=== PATIENT | female | born 1980 | race African-American/Black ===

== ENCOUNTER 2024-11-20 08:25 | Outpatient (AMB) | payer OTHER, SELFPAY ==
--- OUTSIDE RECORDS SUMMARY | 2024-11-20 08:34 | XMS_ITS | Clinical Summary ---
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 MAY REPEAT DOSE ONCE AFTER 2 HOURS, IF NEEDED. 9 tablet 7 06/05/20 24 Active topiramate (TOPAMAX) 25 mg tablet Take 1 tablet (25 mg total) by mouth 2 (two) times a day. 60 each 5 08/10/19 25 025 Active fluticasone propionate (FLONASE) 50 mcg/actuation nasal spray Shake gently. Before first use, prime pump. After use, clean tip and replace cap.2 Sprays by Each Nare route daily. 48 g 2 11/12/19 25 Active loratadine (CLARITIN) 10 mg tablet Take 1 tablet (10 mg total) by mouth 1 (one) time each day. 90 tablet 2 11/12/19 25 Active fluticasone propionate (FLONASE) 50 mcg/actuation nasal spray 2 Sprays by Each Nare route daily. 10/24/19 23 025 Discontin ued(Reord er) loratadine (CLARITIN) 10 mg tablet Take 1 tablet (10 mg total) by mouth 1 (one) time each day. 10/24/19 23 025 Discontin ued(Reord er) propranoloL (INDERAL) 20 mg tablet Take 1 tablet (20 mg total) by mouth See administration instructions. Take two tablets (40mg total) by mouth for three days then take one tablet for three days and stop 9 tablet 08/10/19 25 025 Discontin ued(Presc riber Discontin ued) Active Problems Problem Noted Date Diagnosed Date Migraine without aura and wi th status migrainosus, not intractable 09/13/2017 Chronic pain of right knee 06/10/2017 Hidradenitis 06/10/2017 Encounters Date Type Department Care Team Description 11/10/2024 Telephone Adult Medicine [facility] [address] [place] [address] Deya Lew MA Medication (Pharmacy [facility] ) 11/09/2024 3:45 PM EDT Office Visit Adult Medicine [facility] [address] [place] [address] Ronald Short PA Migraine without aura and with status migrainosus, not intractable (Primary Dx); Seasonal allergies from Last 3 Months Immunizations Name Administration Dates Next Due Influenza Quadravalent, MDCK , 0.5ml, preservative free (Flucelvax) 6mo and older 05/23/2020,08/26/2019 Influenza Quadravalent, MDCK , 0.5ml, with preservative (Flucelvax) 6mo and older 05/17/2017 Influenza trivalent, 0.5mL, preservative free (Fluarix; FluLaval; Fluzone) ages 6mo and older (Afluria) 3 years and older 06/07/2015 Influenza trivalent, MDCK, 0 .5mL, preservative free (Flucelvax) 6mo and older 07/10/2024 PPD Test 05/23/2015 LifeScribe SARS-CoV-2 COVID-19, mRNA, LNP-S, preservative free 04/28/2021 Tdap Tetanus diptheria acell ular pertussis (Boostrix; Adacel) 7yo and older 02/07/2018 Surgical History Surgery Date Site/Laterality Comments OTHER SURGICAL HISTORY PROCEDURE: DENIES PREVIOUS SURGERY Medical History Medical History Date Comments Migraine without aura and wi th status migrainosus, not intractable 09/13/2017 DX:Migraine without aura and with status migrainosus, not intractable Family History Medical History Relation Name Comments Other: etoh Father Glaucoma Mother Hypertension Mother Migraines Mother Breast cancer Neg Hx Relation Name Status Comments Brother 1 Alive Brother 2 Alive Brother 3 Alive Brother 4 Alive Father (Age 46) Maternal Grandfather Maternal Grandmother Mother Alive Paternal Grandfather Paternal Grandmother Social History Tobacco Use Types Packs/Day Years Used Date Smoking Tobacco: Never Smokeless Tobacco: Never Alcohol Use Standard Drinks/Week Comments No 0 (1 standard drink = 0.6 oz pur e alcohol) Housing Instability Answer Date Recorde d Are you worried that in the next 2 months you may not have stable housing? No 07/06/2024 Food Access & Nutrition Answer Date Rec orded Do you have access to a vari ety of food including fruits and vegetables? Yes 07/06/2024 Financial Risk Answer Date Recorded How hard is it for you to pa y for the very basics like food, housing, medical care, and air conditioning / heating? Patient declined 07/06/2024 Food Risk Answer Date Recorded Within the past 12 months we worried whether our food would run out before we got money to buy more. Never true 07/06/2024 Within the past 12 months th e food we bought just didn't last and we didn't have money to get more. Never true 07/06/2024 Living Situation Answer Date Recorded What is your living situation? 0 07/06/2024 Comments Unknown Sex and Gender Information Value Date Recorded Sex Assigned at Female 06/22/2024 10:29 AM EST Legal Sex Female 8:55 PM EST Gender Identity Female 06/22/2024 10:29 AM EST Sexual Orientation Straight 08/03/2024 10 :17 PM EST Obstetrics History Para Term AB IAB SAB Ectopic Multiple Livin g Live Births 1 Date Outcome GA Total Labor Labor/2nd/3rd Weight Sex Type Anes PTL Lindsay A1 A5 Name Clin Term Last Filed Vital Signs Vital Sign Reading Time Taken Comments Blood Pressure 106/67 11/09/2024 3:26 PM EDT Pulse 73 11/09/2024 3:26 PM EDT Temperature 36.9 ??C (98.4 ??F) 11/09/2024 3:26 PM ED T Respiratory Rate - - Oxygen Saturation - - Inhaled Oxygen Concentration - - Weight 75.3 kg (166 lb) 11/09/2024 3:26 PM EDT Height 162.6 cm (5' 4 ) 11/09/2024 3:26 PM EDT Body Mass Index 28.49 11/09/2024 3:26 PM EDT Plan of Treatment Health Maintenance Due Date Last Done Comments Hepatitis B Vaccines (1 of 3 - 19+ 3-dose series) 11/12/1999 HIV Screening 06/09/2022 Hepatitis C Screening 06/09/2022 COVID-19 Vaccine ( season) 2024 04/28/2021, 09/01/2020, 08/11/2020 Cervical Cancer Screening: HPV 02/25/2025 02/26/2020 Depression Screening 07/06/2025 07/06/2024 Social Influencers of Health Screening 07/06/2025 07/06/2024 Breast Cancer Screening 06/23/2026 06/23/20 24, 01/29/2023, 11/24/2021 DTaP,Tdap,and Td Vaccines (2 - Td or Tdap) 02/08/2028 02/07/2018 Influenza Vaccine Completed 07/10/2024, , 08/26/2019, Additional history exists HIB Vaccines Aged Out No longer eligi ble based on patient's age to complete this topic HPV Vaccines Aged Out No longer eligi ble based on patient's age to complete this topic Hepatitis A Vaccines Aged Out No long er eligible based on patient's age to complete this topic IPV Vaccines Aged Out No longer eligi ble based on patient's age to complete this topic MMR Vaccines Aged Out No longer eligi ble based on patient's age to complete this topic Meningococcal ACWY Vaccine Aged Out N o longer eligible based on patient's age to complete this topic Meningococcal B Vaccine Aged Out No l onger eligible based on patient's age to complete this topic Pneumococcal Vaccine: Pediatrics (0 to 5 Years) and At-Risk Patients (6 to 64 Years) Aged Out No longer eligible based on patient's age to complete this topic RSV Immunization Patients Under 20 months Aged Out No longer eligible based on patient's age to complete this topic Varicella Vaccines Aged Out No longer eligible based on patient's age to complete this topic Procedures Procedure Name Priority Date/Time Associated Diagnosis Comments MG MAMMO DIGITAL SCREENING W LIDIA BILAT Routine 06/23/2024 10:29 AM EST Encounter for screening mammogram for breast cancer HM HPV Routine 02/26/2020 from Last 3 Months or Most Recently Relevant to Health Maintenance Results * MG Mammo Digital Screening w Lidia bilat (06/23/2024 10:29 AM EST) Anatomical Region Laterality Modality Breast Bilateral Mammography 06/23/2024 5:11 PM EST Impressions 06/23/2024 5:14 PM EST 1. No mammographic evidence of malignancy 2. Scattered fibroglandular tissue BI-RADS CATEGORY: 2 - BENIGN RECOMMENDATION: Screening bilateral mammogram is recommended in 1 year. Mammo Location: [facility], [address] [place] [address], [id number], . -------- FINAL REPORT -------- Dictated By: Kelsey Lopez Dictated Date: 06/23/2024 17:11 ET Assigned Physician: Kelsey Lopez Reviewed and Electronically Signed By: Kelsey Lopez Signed Date: 06/23/2024 17:14 ET Workstation ID: [id number] Transcribed By: Self Edit Transcribed Date: 06/23/2024 17:11 ET Narrative 06/23/2024 5:14 PM EST A BILATERAL DIGITAL 3D SCREENING MAMMOGRAPHY HISTORY: Routine screening. ??No family history of breast cancer. COMPARISON: Multiple priors dating back to 11/24/2021 Technique: Bilateral full field digital mammography (3D) was performed using standard CC and MLO projections CAD ??was used to evaluate this mammogram. FINDINGS: Right: No suspicious masses, groups of microcalcification or areas of architectural distortion identified. Stable typically benign parenchymal asymmetries. Left: No suspicious masses, groups of microcalcification or areas of architectural distortion identified. Stable typically benign parenchymal asymmetries. BREAST DENSITY: B - There are scattered areas of fibroglandular density. Procedure Note Kelsey Lopez MD - 06/23/2024 A BILATERAL DIGITAL 3D SCREENING MAMMOGRAPHY HISTORY: Routine screening. No family history of breast cancer. COMPARISON: Multiple priors dating back to 11/24/2021 Technique: Bilateral full field digital mammography (3D) was performedusing standard CC and MLO projections CAD was used to evaluate this mammogram. FINDINGS: Right: No suspicious masses, groups of microcalcification or areas ofarchitectural distortion identified. Stable typically benign parenchymalasymmetries. Left: No suspicious masses, groups of microcalcification or areas ofarchitectural distortion identified. Stable typically benign parenchymalasymmetries. BREAST DENSITY: B - There are scattered areas of fibroglandular density. IMPRESSION: 1. No mammographic evidence of malignancy 2. Scattered fibroglandular tissue BI-RADS CATEGORY: 2 - BENIGN RECOMMENDATION: Screening bilateral mammogram is recommended in 1 year. Mammo Location: [facility], [address] [place] [address], [id number], . -------- FINAL REPORT -------- Dictated By: Kelsey Lopez Dictated Date: 06/23/2024 17:11 ET Assigned Physician: Kelsey Lopez Reviewed and Electronically Signed By: Kelsey Lopez Signed Date: 06/23/2024 17:14 ET Workstation ID: [id number] Transcribed By: Self Edit Transcribed Date: 06/23/2024 17:11 ET Deya Burton MD IMG BI PROCEDURES Final Result * Cervical Cancer Screening: HPV (02/26/2020) Cervical Cancer Screening: HPV no interpretation , abstracted Historical Provider HEALTH MAINTENANCE Final Result from Last 3 Months or Most Recently Relevant to Health Maintenance Insurance [employer] Care Teams Professor Of Criminal Justice Relationship Specialty Start Date End Date Deya Burton MD [address] [place] [id number] PCP - General Internal Medicine 04/19/14
[2024-11-20 08:38] VITALS: BP 110/82; PULSE 78; O2SAT 99
--- NOTE | 2024-11-20 08:38 | MHC.OFFVIS ---
Vital Signs 11/20/24 08:38 Weight 170 lb BP 110/82 Blood Pressure Location Rt brachial Position Sitting Pulse 78 Pulse Source Pulse Oximeter Pulse Oximetry (%) 99 Oxygen Delivery Method Room Air Intake Visit Reasons: Headache Fiction Writer Required: No Accompanied by: Self / Same As Patient Allergies No Known Allergies Allergy (Verified 11/20/24 08:38) Medication List - Last Reconciled 11/20/24 by ROSA Leyva fluticasone propionate 50 mcg/actuation (Children's Flonase Allergy Relief) 1 spray intranasal DAILY levonorgestrel (Mirena) intrauterine loratadine (Allergy Relief (loratadine)) 10 mg PO DAILY sumatriptan succinate 50 - 100 mg orally at onset of headache, may repeat in 2 hrs PRN; max 2 tabs per day or 4 tabs/week (may take with Ibuprofen) 30 days topiramate 50 mg PO BID 30 days HPI Comments Details: 44-yr-old female presents for follow-up of migraine. Patient was last seen in May of 2022 by myself. Pt denies any interval medical history changes. 05/07/2022 brain MRI with and without contrast, at [facility], showed only mild nonspecific foci of T2/FLAIR hyperintensity within the cerebral white matter, but otherwise no explanations to account for patient's history of headache. Pt reports she continues to have her typical headache. Last year was better, but this year her migraines have increased again. The headache starts 5-6 days prior to her menstrual cycle, and lasts for the entire week of her menstrual cycle. She states her menstrual cycle is regular. She remove her Mirena last year, thinking this was contributing to her migraine attacks. She also has milder headaches in between her menstrual migraine. She is taking Sumatriptan, which is helpful for the more bothersome migraine, but sometimes takes a bit longer to kick in. She states after last visit she did increase her topiramate to 50 mg twice a day which she tolerated well, but then her headaches were better, so the dose was reduced back to 25 mg twice a day. 05/01/2022, Initial HPI: Right-handed 41-yr-old female presents for new pt evaluation of headache disorder, specifically migraine. Pt is accompanied by . Pt reports that she has had headaches ofr some time, but over the last 3 yrs the headaches have become more consistent and bothersome. She has seen neurology once prior, however she did not have her MRI report, so the visit was not productive. The Brain MRI w/o (08/22) showed Moderate white matter disease and mild cerebellar tonsilar ectopia. Headache questionnaire: Onset? Had headaches on and off, but became more consistent 3 yrs ago Preceding causes? Unsure Headache characteristics? Usually starts in left side of head and moves to rigt side. Pain intensity? Usually 9/10 Prodrome symptoms? None Aura? None Associated symptoms? Photophobia, phonophobia, sometimes N/V, sometimes not right in space dizziness, brain fog, watery eyes, general fatigue. The pain may move down neck into back and whole body. No facial weakness. Has activity intolerance, but also can have an urge to get up and walk the pain away. Postdrome? None Triggers? None. Sometimes can wake up with headache. Sometimes may occur w/ menses, but other times no. Duration? With Sumatriptan 30-60 minutes. W/o Tx would last all day. Frequency? Over the last 3 months, she has woken up with headache. How does headache impact your life? Sometimes has to miss work. 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 Current acute medication use/interventions: Imitrex every 2nd-3rd day, and using Alkaseltzer plus on the other days- helps some. Previous acute medication use: Aspirin. Current preventative medication use: Topiramate 25mg bid- tolerates well, initially helped better. Previous preventative medication use: None. Non-pharmacological interventions: Ice. Denies history of episodic vision changes, weakness, or paresthesias. Denies h/o Lyme disease or infections in the past 3 yrs. History of musculoskeletal disorders or injury? None. History of concussion/head injury? None History of mood disorder? None History of sleep disorder? No issues History of CV disease? None History of coagulopathy? None History of endocrine or metabolic disease? None History of seizure? None Family history of migraine or other headache disorder? Her mother. [facility] Surgical History History of myomectomy Family History Mother Hypertension Glaucoma Chronic headaches Social History Alcohol intake: never Patient Tobacco Use Status: Never used Tobacco Physical Exam Vital Signs: Last Vital Signs Pulse 78 11/20/24 08:38 BP 110/82 11/20/24 08:38 Pulse Ox 99 11/20/24 08:38 Oxygen Delivery Method Room Air 11/20/24 08:38 Const General: cooperative and no acute distress Orientation/consciousness: patient oriented x3 Resp Effort & Inspection: normal respiratory effort and able to speak in complete sentences Neuro General: patient oriented x3 Cranial nerves: Yes CN's II-XII intact bilaterally Cognition (Neuro): normal cognition Psych Appearance: grossly normal Mental Status: mental status grossly normal Speech and movement: Normal speech and movement present Affect: normal affect Attitude: cooperative Assessment & Plan Assessment & Plan (1) Migraine without aura: Code(s): G43.009 - Migraine without aura, not intractable, without status migrainosus Category: Medical Qualifiers: Status migrainosus presence: without status migrainosus Intractability: not intractable Qualified Code(s): G43.009 - Migraine without aura, not intractable, without status migrainosus (2) Menstrual migraine with status migrainosus: Code(s): G43.821 - Menstrual migraine, not intractable, with status migrainosus Category: Medical (3) White matter abnormality on MRI of brain: Comment: Mild nonspecific Code(s): R90.82 - White matter disease, unspecified Category: Medical Plan Reviewed previous Brain MRI w/wo- no findings to account for patient's headache symptoms. For overall headache management: It is important to optimize good self-care, including but not limited to maintaining a healthy diet, adequate fluid intake, adequate sleep, and engaging in regular physical activity. We will share nonpharmacological migraine treatment information with patient via portal. For menstrual migraine: Try taking 1 cup of edamame daily x7 days, starting 7 days before onset of menstrual cycle. Trial Naratriptan 2.5mg tab, 1 tab twice a day x6 days, starting the day of her menstrual migraine. If insurance does not cover naratriptan, instead trial frovatriptan 2.5 mg tab, 1 tab twice a day x6 days, starting the day of her menstrual migraine. May take with Ibuprofen (liquid gels) 600mg every 6 hours, or Naproxen (liquid gels) 440mg q 12 hrs as needed. Potential adverse effects of triptans, include but are not limited to nausea, fatigue, chest tightness/tingling (usually passes within a few minutes), medication overuse headaches. For acute migraine headache treatment: Continue Sumatriptan 100mg tab, 1/2 - 1 tab (50-100mg) at onset of headache, may repeat in 2 hours. Max of 2 tabs (200mg) per 24 hours. May take sumatriptan with OTC Tylenol 650-1,000mg every 4-6 hours, Ibuprofen (liquid gels) 600mg every 6 hours, or Naproxen (liquid gels) 440mg q 12 hrs as needed.. For migraine headache prevention medication: Increase Topiramate from 25mg twice a day to 50mg twice a day. Previous migraine tx trials- Riboflavin and Magnesium- caused rashes. F/U in 6 months or sooner w/ any new/worsening s/s. Medications: New naratriptan 1 tab bid x's 6 days, start at onset of menstrual migraine. orally; 30 days 12 tabs 6RF migraine headache G43.821 - Menstrual migraine, not intractable, with status migrainosus frovatriptan 1 tab bid x's 6 days, start at onset of menstrual migraine. orally 30 days 12 tabs 6RF G43.821 - Menstrual migraine, not intractable, with status migrainosus Refilled topiramate 50 mg PO BID 30 days 60 tabs 6RF sumatriptan succinate (0.5 - 1 x 100 mg) 50 - 100 mg orally at onset of headache, may repeat in 2 hrs PRN; max 2 tabs per day or 4 tabs/week (may take with Ibuprofen) 30 days 12 tabs 6RF migraine headache Coding Level of Care Code Est Pt Level 4 (29823) Diagnoses Migraine without aura and without status migrainosus, not intractable G43.009 Status migrainosus presence: without status migrainosus Intractability: not intractable Menstrual migraine with status migrainosus G43.821 White matter abnormality on MRI of brain R90.82
== END 2024-11-20 09:22 | disposition home or self-care (01) ==
LOC: HO.HSMS 08:28
PROVIDERS: PCP Internal Medicine; Visit Provider Nurse Practitioner Family
DX: G43.009 Migraine without aura, not intractable, without status migrainosus (principal); G43.821 Menstrual migraine, not intractable, with status migrainosus; R90.82 White matter disease, unspecified
CPT/HCPCS: 99214

== ENCOUNTER → 2024-11-20 08:25 | Outpatient (BNVA) | payer OTHER, SELFPAY | PROVIDERS: PCP Internal Medicine; Visit Provider Nurse Practitioner Family ==